=== PATIENT | female | born 1985 | race Caucasian/White ===

== ENCOUNTER → 2016-12-24 | Outpatient (CLI) | payer OTHER ==
[2016-12-24 13:49] LABS: Hemoglobin A1C 6.2 % (4.2-6.1)
== END | disposition home or self-care (01) ==
LOC: LABWHC1 09:03
PROVIDERS: ATTEND Internal Medicine
DX: E11.9 Type 2 diabetes mellitus without complications (principal)
CPT/HCPCS: 36415; 82947; 83036

== ENCOUNTER → 2017-08-13 | Outpatient (CLI) | payer OTHER ==
[2017-08-13 10:16] LABS: HCT 43.5 % (34.0-46.0); HGB 14.5 gm/dL (11.4-16.0); MCH 30.2 pg (25.0-35.0); MCHC 33.4 g/dL (31.0-37.0); MCV 90.3 fL (80.0-100.0); Mean Platelet Volume 7.3; Platelet Count 303 k/uL (150-450); RBC 4.82 m/uL (3.80-5.40); RDW 12.9 % (11.5-15.5); WBC 10.9 k/uL (3.8-10.6)
[2017-08-13 10:42] LABS: ALT 76 U/L (9-52); AST 62 U/L (14-36); Albumin 4.1 g/dL (3.5-5.0); Alkaline Phosphatase 66 U/L (38-126); Anion Gap 10 mmol/L; Blood Urea Nitrogen 17 mg/dL (7-17); Calcium 9.7 mg/dL (8.4-10.2); Carbon Dioxide 24 mmol/L (22-30); Chloride 105 mmol/L (98-107); Cholesterol 122 mg/dL (<200); Glucose 109 mg/dL (74-99); HDL Cholesterol 35 mg/dL (40-60); LDL Cholesterol,Calculated 53 mg/dL (0-99); Potassium 4.6 mmol/L (3.5-5.1); Sodium 139 mmol/L (137-145); Total Bilirubin 0.4 mg/dL (0.2-1.3); Total Protein 7.1 g/dL (6.3-8.2); Triglycerides 172 mg/dL (<150)
[2017-08-13 10:53] LABS: T4, Free (Free Thyroxine) 0.89 ng/dL (0.78-2.19)
[2017-08-13 15:54] LABS: Hemoglobin A1C 6.4 % (4.0-6.0)
== END | disposition home or self-care (01) ==
LOC: LABWHC1 09:36
PROVIDERS: ATTEND Internal Medicine
DX: Z00.00 Encounter for general adult medical examination without abnormal findings (principal); I11.9 Hypertensive heart disease without heart failure; E11.9 Type 2 diabetes mellitus without complications; E66.1 Drug-induced obesity
CPT/HCPCS: 36415; 80053; 80061; 83036; 84439; 84443; 85027

== ENCOUNTER → 2017-09-30 | Outpatient (CLI) | payer OTHER ==
[2017-09-30 09:34] LABS: ALT 67 U/L (9-52); AST 57 U/L (14-36); Alkaline Phosphatase 72 U/L (38-126); Glucose 125 mg/dL (74-99)
--- NOTE | 2017-09-30 09:47 | XR ---
EXAMINATION TYPE: XR knee complete LT DATE OF EXAM: 09/30/2017 COMPARISON: NONE HISTORY: 32-year-old female left knee pain for 2 weeks TECHNIQUE: 3 views FINDINGS: There is tricompartmental degenerative spurring. Weightbearing view could better assess any cartilage /joint space narrowing. Enthesopathy at the upper pole of the patella. No significant joint effusion. There may be mild thickening of the patellar tendon. No acute fracture, subluxation, or dislocation seen. IMPRESSION: 1. Mild tricompartmental osteoarthrosis. 2. There may be mild thickening of the patellar tendon suggesting underlying patellar tendinopathy. C orrelate for any localizing symptoms here. 3. No acute osseous abnormality seen.
[2017-09-30 17:13] LABS: Hemoglobin A1C 6.5 % (4.0-6.0)
== END | disposition home or self-care (01) ==
LOC: LABWHC1 08:32
PROVIDERS: ATTEND Internal Medicine
DX: M17.12 Unilateral primary osteoarthritis, left knee (principal); E11.9 Type 2 diabetes mellitus without complications; R94.5 Abnormal results of liver function studies
CPT/HCPCS: 36415; 82947; 83036; 84075; 84450; 84460

== ENCOUNTER → 2017-10-01 | Outpatient (CLI) | payer OTHER ==
--- NOTE | 2017-10-01 16:39 | US ---
EXAMINATION TYPE: US venous doppler duplex LE LT DATE OF EXAM: 10/01/2017 4:23 PM COMPARISON: 01/27/2013 CLINICAL HISTORY: M79.662 Pain in left lower leg, R22.42. Left popliteal fossa pain x 2 weeks SIDE PERFORMED: Left TECHNIQUE: The lower extremity deep venous system is examined utilizing real time linear array sonog froy with graded compression, doppler sonography and color-flow sonography. VESSELS IMAGED: Common Femoral Vein Deep Femoral Vein Greater Saphenous Vein * Femoral Vein Popliteal Vein Small Saphenous Vein * Proximal Calf Veins (* superficial vessels) Left Leg: Negative for DVT IMPRESSION: Negative exam. No evidence of deep venous thrombosis in the left leg.
== END | disposition home or self-care (01) ==
LOC: RADUSWWP 16:01
PROVIDERS: ATTEND Internal Medicine
DX: R22.42 Localized swelling, mass and lump, left lower limb (principal); M79.662 Pain in left lower leg; M25.562 Pain in left knee

== ENCOUNTER → 2018-02-09 | Outpatient (CLI) | payer OTHER ==
[2018-02-09 10:16] LABS: HCT 43.2 % (34.0-46.0); HGB 14.4 gm/dL (11.4-16.0); MCH 29.8 pg (25.0-35.0); MCHC 33.3 g/dL (31.0-37.0); MCV 89.5 fL (80.0-100.0); Mean Platelet Volume 6.7; Platelet Count 288 k/uL (150-450); RBC 4.82 m/uL (3.80-5.40); RDW 13.3 % (11.5-15.5); WBC 10.3 k/uL (3.8-10.6)
[2018-02-09 10:50] LABS: ALT 71 U/L (9-52); AST 53 U/L (14-36); Albumin 3.9 g/dL (3.5-5.0); Alkaline Phosphatase 60 U/L (38-126); Anion Gap 8 mmol/L; Blood Urea Nitrogen 20 mg/dL (7-17); Calcium 9.4 mg/dL (8.4-10.2); Carbon Dioxide 22 mmol/L (22-30); Chloride 109 mmol/L (98-107); Glucose 122 mg/dL (74-99); Potassium 4.6 mmol/L (3.5-5.1); Sodium 139 mmol/L (137-145); Total Bilirubin 0.5 mg/dL (0.2-1.3); Total Protein 6.9 g/dL (6.3-8.2)
--- NOTE | 2018-02-09 15:32 | US ---
EXAMINATION TYPE: US abdomen complete DATE OF EXAM: 02/09/2018 COMPARISON: NONE CLINICAL HISTORY: R10.84 Generalized abdominal pain, R68.89. Nausea, abdominal pain, cholecystectomy 2012 EXAM MEASUREMENTS: Liver Length: 19.9 cm Gallbladder Wall: Surgically absent CBD: 0.6 cm Spleen: 12.8 cm Right Kidney: 11.8 x 5.1 x 6.0 cm Left Kidney: 11.4 x 5.2 x 5.1 cm Technical limitations due to patient's body habitus and large amount of overlying bowel content Pancreas: Obscured by bowel gas Liver: enlarged, attenuating, unable to penetrate Gallbladder: Surgically absent Evidence for sonographic Saravia's sign: no CBD: appears wnl as visualized Spleen: appears wnl Right Kidney: no evidence of hydronephrosis or mass Left Kidney: no evidence of hydronephrosis or mass Upper IVC: wnl Abd Aorta: visualized portions appear wnl, distal and bifurcation obscured by overlying bowel IMPRESSION: 1. Moderate fatty infiltration liver and hepatomegaly. 2. Limitation due to patient's body habitus.
== END | disposition home or self-care (01) ==
LOC: RADUSWWP 09:08
PROVIDERS: ATTEND Internal Medicine
DX: K76.0 Fatty (change of) liver, not elsewhere classified (principal); E11.9 Type 2 diabetes mellitus without complications; K21.0 Gastro-esophageal reflux disease with esophagitis; R11.0 Nausea; R19.7 Diarrhea, unspecified
CPT/HCPCS: 36415; 76700; 80053; 85027

== ENCOUNTER → 2018-04-28 | Outpatient (CLI) | payer OTHER ==
[2018-04-28 11:59] VITALS: BP 130/80; PULSE 73; TEMP 98.3; BMI 44.4
--- NOTE | 2018-04-28 12:43 | P.HPOB ---
History of Present Illness H&P Date: 04/28/18 Chief Complaint: The patient is here for her routine gynecologic exam. This is a 32-year-old with an LMP of 03/29/2018. The patient is status post tubal sterilization. It has been about 3 1/2 years since her last pelvic exam. Her menses are regular every month. She states she has had low sex drive since last . She denies any pain with sexual activity. She is otherwise without complaints. Review of Systems The patient's weight has been stable over the last year. She denies respiratory , cardiac, or G.I. problems. Past Medical History Past Medical History: Diabetes Mellitus (Pre-Type II diabetes, previous gestational diabetes), Hypertension Additional Past Medical History / Comment(s): Obstetric history: First was a spontaneous . Second : HTN throughout, C- section at 39 weeks. Her third : HTN GDM. 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 History of Any Multi-Drug Resistant Organisms: None Reported Past Surgical History: Section (x2), Cholecystectomy Additional Past Surgical History / Comment(s): back surgery, oral surgery. Past Anesthesia/Blood Transfusion Reactions: No Reported Reaction Additional Past Anesthesia/Blood Transfusion Reaction / Comment(s): itchiness Past Psychological History: Depression Additional Psychological History / Comment(s): post depression Smoking Status: Current every day smoker (Half pack per day ,down from 1 1/2 packs per day.) Past Alcohol Use History: None Reported Past Drug Use History: None Reported Additional History: She has been since 2014 and does not work outside the home. - Past Family History Father Family Medical History: CVA/TIA, Hypertension Mother Family Medical History: Cancer (Uterine cancer), CVA/TIA, Hypertension Additional Family Medical History / Comment(s): Maternal grandmother had breast and uterine cancer Medications and Allergies Home Medications Medication Instructions Recorded Confirmed Type Cholecalciferol [Vitamin D3] 50 mcg PO DAILY 04/28/18 04/28/18 History Cyanocobalamin (Vitamin B-12) PO DAILY 04/28/18 History [Vitamin B-12] Diclofenac Sodium [Voltaren] PO BID 04/28/18 History Lisinopril-Hctz 20-25 mg PO DAILY 04/28/18 History [Zestoretic 20-25] metFORMIN HCL [Metformin HCl] 500 PO BID 04/28/18 History traMADol HCl [Ultram] PO BID 04/28/18 History Allergies Allergy/AdvReac Type Severity Reaction Status Date / Time No Known Allergies Allergy Verified 04/28/18 11:51 Exam Vital Signs Temp Pulse BP 04/28/18 11:56 98.3 F 73 130/80 Intake and Output 04/27/18 04/28/18 04/28/18 22:59 06:59 14:59 Other: Weight 128.82 kg Height 5'7", weight 284 pounds, BMI 44.5. This is a well-developed well-nourished obese white female who is alert and oriented times 3 in no acute distress. HEENT: Within normal limits. There is a piercing lateral to the right eye. She is edentulous in the upper mouth. NECK: Supple without mass or thyromegaly. CHEST AND LUNGS: Clear to auscultation. HEART: Regular rate and rhythm. BREASTS: Are without mass or discharge. AXILLARY EXAM: Negative for adenopathy. BACK: Negative for CVA tenderness. ABDOMEN: Soft, obese, nontender, without palpable masses. PELVIC EXAM: Normal external genitalia. Cervix and vagina appear normal. There is no unusual discharge. There is no evidence of prolapse. The uterus is midposition, nongravid size and nontender. There are no palpable adnexal masses or tenderness. Bimanual examination is somewhat limited secondary to her size. RECTAL EXAM: rectal exam was refused by the patient. EXTREMITIES: Nontender. IMPRESSION: 1. 32-year-old female who is status post tubal sterilization with normal gynecologic exam. 2. Obesity. 3. Low sex drive without any significant physical findings at this time. PLAN: 1. Pap smear was performed. 2. Self breast awareness was discussed with the patient. 3. We've had a long discussion regarding low sex drive and the many possible causes. 4. We discussed the importance of good nutrition, exercise and I've also recommended trying to quit smoking altogether. 5. Will return in one year and PRN.
== END | disposition home or self-care (01) ==
LOC: WWCWWP 11:12
PROVIDERS: ATTEND Obstetrics & Gynecology
DX: Z53.9 Procedure and treatment not carried out, unspecified reason (principal)

== ENCOUNTER → 2018-04-28 | Outpatient (CLI) | payer OTHER ==
[2018-04-28 22:28] LABS: Hemoglobin A1C 6.8 % (4.0-6.0)
== END ==
LOC: LABWHC1 12:34
PROVIDERS: ATTEND Internal Medicine
DX: E11.9 Type 2 diabetes mellitus without complications (principal)
CPT/HCPCS: 36415; 82947; 83036

== ENCOUNTER → 2018-10-01 | Outpatient (CLI) | payer OTHER ==
--- NOTE | 2018-10-01 13:03 | XR ---
EXAMINATION TYPE: XR chest 2V DATE OF EXAM: 10/01/2018 COMPARISON: 05/21/2016 HISTORY: Annual physical TECHNIQUE: Frontal and lateral views of the chest are obtained. FINDINGS: There is no focal air space opacity, pleural effusion, or pneumothorax seen. The cardiac silhouette size is within normal limits. The osseous structures are intact. Moderate multilevel deg enerative changes of the thoracic spine are present. IMPRESSION: No acute cardiopulmonary process.
[2018-10-01 13:07] LABS: HGB 15.1 gm/dL (11.4-16.0); MCH 29.9 pg (25.0-35.0); MCHC 34.4 g/dL (31.0-37.0); MCV 86.9 fL (80.0-100.0); Mean Platelet Volume 6.6; Platelet Count 351 k/uL (150-450); RBC 5.06 m/uL (3.80-5.40); RDW 13.3 % (11.5-15.5); WBC 9.5 k/uL (3.8-10.6)
[2018-10-01 13:12] LABS: ALT 89 U/L (9-52); AST 77 U/L (14-36); Albumin 4.1 g/dL (3.5-5.0); Alkaline Phosphatase 96 U/L (38-126); Anion Gap 9 mmol/L; Blood Urea Nitrogen 18 mg/dL (7-17); Calcium 9.7 mg/dL (8.4-10.2); Carbon Dioxide 25 mmol/L (22-30); Chloride 107 mmol/L (98-107); Cholesterol 136 mg/dL (<200); Glucose 168 mg/dL (74-99); HDL Cholesterol 37 mg/dL (40-60); LDL Cholesterol,Calculated 65 mg/dL (0-99); Potassium 4.6 mmol/L (3.5-5.1); Sodium 141 mmol/L (137-145); Total Bilirubin 0.5 mg/dL (0.2-1.3); Total Protein 7.3 g/dL (6.3-8.2); Triglycerides 169 mg/dL (<150)
[2018-10-01 21:13] LABS: Hemoglobin A1C 8.1 % (4.0-6.0)
== END | disposition home or self-care (01) ==
LOC: RADXRMAIN 12:10
PROVIDERS: ATTEND Internal Medicine
DX: Z00.00 Encounter for general adult medical examination without abnormal findings (principal); I11.9 Hypertensive heart disease without heart failure; E11.9 Type 2 diabetes mellitus without complications; E66.1 Drug-induced obesity
CPT/HCPCS: 36415; 71046; 80053; 80061; 82043; 82570; 83036; 84439; 84443; 85027

== ENCOUNTER → 2019-03-02 | Outpatient (CLI) | payer OTHER ==
--- NOTE | 2019-03-02 18:40 | US ---
EXAMINATION TYPE: US abdomen complete DATE OF EXAM: 03/02/2019 COMPARISON: US CLINICAL HISTORY: R74.8 Abnormal liver enzymes. Patient stated on meds for diabetes, HTN; cholecystec theo EXAM MEASUREMENTS: Liver Length: 23.2 cm Gallbladder Wall: surgically removed CBD: 0.4 cm Spleen: 11.2 cm Right Kidney: 12.5 x 6.6 x 5.6 cm Left Kidney: 12.3 x 6.9 x 5.2 cm Pancreas: wnl Liver: enlarged, fatty, attenuated posteriorly Gallbladder: surgically removed Evidence for sonographic Saravia's sign: no CBD: wnl Spleen: wnl Right Kidney: No hydronephrosis or masses seen Left Kidney: No hydronephrosis or masses seen Upper IVC: wnl Abd Aorta: limitedly seen inferiorly due to overlying bowel gas IMPRESSION: 1. Mild fatty infiltration of the liver. Hepatomegaly is present.
== END | disposition home or self-care (01) ==
LOC: RADUSWWP 06:47
PROVIDERS: ATTEND Family Medicine
DX: K76.0 Fatty (change of) liver, not elsewhere classified (principal); R16.0 Hepatomegaly, not elsewhere classified
CPT/HCPCS: 76700

== ENCOUNTER → 2019-06-28 | Outpatient (CLI) | payer OTHER ==
[2019-06-28 11:25] VITALS: BP 144/81; PULSE 74; RESP 18; TEMP 98.7
--- NOTE | 2019-06-28 11:50 | P.HPOB ---
History of Present Illness H&P Date: 06/28/19 Chief Complaint: The patient is here for her routine gynecologic exam. This is a 33-year-old 012 with an LMP of 06/08/2019. The patient is status post tubal ligation. Menses are typically regular every month, but did miss a menstrual period last month when her father . She attributes this to the stress related to her father's . She is without gynecologic complaints. Review of Systems The patient's weight has been stable over the last year. She denies respiratory, cardiac, or G.I. problems. Past Medical History Past Medical History: Diabetes Mellitus, Hypertension Additional Past Medical History / Comment(s): Type 2 diabetes. 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 History of Any Multi-Drug Resistant Organisms: None Reported Past Surgical History: Section, Cholecystectomy Additional Past Surgical History / Comment(s): back surgery. section 2. Past Anesthesia/Blood Transfusion Reactions: No Reported Reaction Additional Past Anesthesia/Blood Transfusion Reaction / Comment(s): itchiness Past Psychological History: No Psychological Hx Reported Additional Psychological History / Comment(s): post depression Smoking Status: Current every day smoker (One pack per day) Past Alcohol Use History: None Reported Past Drug Use History: None Reported Additional History: She has been since 2014 and does not work outside the home. Her mother and brother have moved in with her since her father in 2018. - Past Family History Father Family Medical History: Cancer, CVA/TIA, Hypertension Additional Family Medical History / Comment(s): Brain cancer. Mother Family Medical History: Cancer, CVA/TIA, Hypertension Additional Family Medical History / Comment(s): Uterine cancer. Maternal g randmother had breast and uterine cancer Medications and Allergies Home Medications Medication Instructions Recorded Confirmed Type Cholecalciferol [Vitamin D3] 50 mcg PO DAILY 04/28/18 06/28/19 History Cyanocobalamin (Vitamin B-12) 1 tab PO DAILY 04/28/18 06/28/19 History [Vitamin B-12] Diclofenac Sodium [Voltaren] 75 mg PO BID 04/28/18 06/28/19 History Lisinopril-Hctz 20-25 mg 20 mg PO DAILY 04/28/18 06/28/19 History [Zestoretic 20-25] metFORMIN HCL [Metformin HCl] 500 mg PO BID 04/28/18 06/28/19 History traMADol HCl [Ultram] 50 mg PO BID 04/28/18 06/28/19 History Amitriptyline HCl 25 mg PO HS 06/28/19 06/28/19 History Ascorbic Acid [Vitamin C] 500 mg PO DAILY 06/28/19 06/28/19 History Biotin 1 tab PO DAILY 06/28/19 06/28/19 History DULoxetine HCL [Cymbalta] 30 mg PO DAILY 06/28/19 06/28/19 History DULoxetine HCL [Cymbalta] 60 mg PO HS 06/28/19 06/28/19 History Omeprazole 40 mg PO DAILY 06/28/19 06/28/19 History glipiZIDE [Glucotrol] 10 mg PO AC-BID 06/28/19 06/28/19 History Allergies Allergy/AdvReac Type Severity Reaction Status Date / Time No Known Allergies Allergy Verified 06/28/19 11:14 Exam Vital Signs Temp Pulse Resp BP Pulse Ox 06/28/19 11:19 98.7 F 74 18 144/81 96 Intake and Output 06/27/19 06/28/19 06/28/19 22:59 06:59 14:59 Other: Weight 130.181 kg Height 5 feet 7 inches, weight 287 pounds, BMI 45.0. This is a well-developed well-nourished heavyset white female who is alert and oriented times 3 in no acute distress. HEENT: Within normal limits. NECK: Supple without mass or thyromegaly. CHEST AND LUNGS: Clear to auscultation. HEART: Regular rate and rhythm. BREASTS: Are without mass or discharge. AXILLARY EXAM: Negative for adenopathy. BACK: Negative for CVA tenderness. ABDOMEN: Soft, obese, nontender, without palpable masses. PELVIC EXAM: Normal external genitalia. Cervix and vagina appear normal. There is no unusual discharge. There is no evidence of prolapse. The uterus is midposition, nongravid size and nontender. There are no palpable adnexal masses or tenderness. Bimanual examination is somewhat limited secondary to her size. RECTAL EXAM: negative for mass or tenderness. EXTREMITIES: Nontender. IMPRESSION: 1. 33-year-old female who is status post tubal ligation with normal gynecologic exam. 2. Smoker 3. Obesity. PLAN: 1. Pap smear was deferred since she had a normal one on 04/28/2018. 2. Self breast awareness was discussed with the patient. 3. I have recommended that she try to quit smoking. She will discuss this with her PCP and look into options. 4. She was advised to return in one year for her annual well woman exam.
== END | disposition home or self-care (01) ==
LOC: WWCWWP 11:06
PROVIDERS: ATTEND Obstetrics & Gynecology
DX: Z53.9 Procedure and treatment not carried out, unspecified reason (principal)

== ENCOUNTER 2019-08-23 22:22 | Emergency (ER) | payer OTHER ==
[2019-08-24] MEDS ORDERED: ACETAMINOPHEN TAB 325 MG TAB PO STA (00:34)
--- NOTE | 2019-08-24 01:04 | XR ---
EXAMINATION TYPE: XR soft tissue neck DATE OF EXAM: 08/24/2019 COMPARISON: NONE HISTORY: Cough TECHNIQUE: 2 views FINDINGS: Epiglottis is normal. Subglottic trachea appears normal. The tonsils and adenoids are withi n normal limits. Cervical spine appears intact. IMPRESSION: Negative cervical soft tissue exam.
--- NOTE | 2019-08-24 01:05 | XR ---
EXAMINATION TYPE: XR chest 2V DATE OF EXAM: 08/24/2019 COMPARISON: 10/01/2018 HISTORY: Cough TECHNIQUE: FINDINGS: Heart and mediastinum are normal. Lungs are clear. Diaphragm is normal. Bony thorax is inta ct. IMPRESSION: Normal chest. No change.
--- NOTE | 2019-08-24 01:53 | ED ---
General Adult HPI - General Chief complaint: Fever Stated complaint: Sore throat,fever Time Seen by Provider: 08/24/19 00:25 Source: patient, RN notes reviewed, old records reviewed Mode of arrival: ambulatory Limitations: no limitations - History of Present Illness Initial comments: 34-year-old female patient with no pertinent past history presents ED for chief complaint of approximately 2 days of sore throat, cough congestion, fevers and chills. Patient reports that approximately one month ago she also had a sore throat and had a hoarse voice. Complaint of sore throat. Denies chance of being . Systemic: Pt denies fatigue, fever/chills, rash. Pt denies weakness, night sweats, weight loss. Neuro: Pt denies headache, visual disturbances, syncope or pre-syncope. HEENT: Pt denies ocular discharge or irritation, otalgia, rhinorrhea, or notable lymphadenopathy. Cardiopulmonary: Pt denies chest pain, SOB, heart palpitations, dyspnea on exertion. Abdominal/GI: Pt denies abdominal pain, n/v/d. : Pt denies dysuria, burning w/ urination, frequency/urgency. Denies new onset urinary or bowel incontinence. MSK: Pt denies myalgia, loss of strength or function in extremities. Neuro: Pt denies new onset weakness, paresthesias. - Related Data Home Medications Medication Instructions Recorded Confirmed Cholecalciferol [Vitamin D3] 50 mcg PO DAILY 04/28/18 06/28/19 Cyanocobalamin (Vitamin B-12) 1 tab PO DAILY 04/28/18 06/28/19 [Vitamin B-12] Diclofenac Sodium [Voltaren] 75 mg PO BID 04/28/18 06/28/19 Lisinopril-Hctz 20-25 mg 20 mg PO DAILY 04/28/18 06/28/19 [Zestoretic 20-25] metFORMIN HCL [Metformin HCl] 500 mg PO BID 04/28/18 06/28/19 traMADol HCl [Ultram] 50 mg PO BID 04/28/18 06/28/19 Amitriptyline HCl 25 mg PO HS 06/28/19 06/28/19 Ascorbic Acid [Vitamin C] 500 mg PO DAILY 06/28/19 06/28/19 Biotin 1 tab PO DAILY 06/28/19 06/28/19 DULoxetine HCL [Cymbalta] 30 mg PO DAILY 06/28/19 06/28/19 DULoxetine HCL [Cymbalta] 60 mg PO HS 06/28/19 06/28/19 Omeprazole 40 mg PO DAILY 06/28/19 06/28/19 glipiZIDE [Glucotrol] 10 mg PO AC-BID 06/28/19 06/28/19 Allergies Allergy/AdvReac Type Severity Reaction Status Date / Time No Known Allergies Allergy Verified 08/23/19 22:29 Review of Systems ROS Statement: Those systems with pertinent positive or pertinent negative responses have been documented in the HPI. ROS Other: All systems not noted in ROS Statement are negative. 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 History of Any Multi-Drug Resistant Organisms: None Reported Past Surgical History: Section, Cholecystectomy Additional Past Surgical History / Comment(s): back surgery. section 2. Past Anesthesia/Blood Transfusion Reactions: No Reported Reaction Additional Past Anesthesia/Blood Transfusion Reaction / Comment(s): itchiness Past Psychological History: No Psychological Hx Reported Smoking Status: Current every day smoker Past Alcohol Use History: None Reported Past Drug Use History: None Reported - Past Family History Father Family Medical History: Cancer, CVA/TIA, Hypertension Additional Family Medical History / Comment(s): Brain cancer. Mother Family Medical History: Cancer, CVA/TIA, Hypertension Additional Family Medical History / Comment(s): Uterine cancer. Maternal grandmother had breast and uterine cancer General Exam - General Exam Comments Initial Comments: Constitutional: NAD, AOX3, Pt has pleasant affect. HEENT: NC/AT, trachea midline, neck supple, no lymphadenopathy. Posterior pharynx non erythematous, without exudates. External ears appear normal, without discharge. Mucous membranes moist. Eyes PERRLA, EOM intact. There is no scleral icterus. No pallor noted. Cardiopulmonary: RRR, no murmurs, rubs or gallops, no JVD noted. Lungs CTAB in anterior and posterior paiz. No peripheral edema. Abdominal exam: Abdomen soft and non-distended. Abdomen non-tender to palpation in all 4 quadrants. Bowel sounds active in LLQ. No hepatosplenomegaly. No ecchymosis Neuro: CN II-XII grossly intact. No nuchal rigidity. No raccon eyes, no steven sign, no hemotympanum. No cervical spinal tenderness. MSK: No posterior calf tenderness bilaterally, homans sign negative bilaterally. Posterior tibialis and radial pulse +2 bilaterally. Sensation intact in upper and lower extremities. Full active ROM in upper and lower extremities, 5/5 stregnth. Limitations: no limitations Course Vital Signs 08/23/19 22:27 Temperature 99.9 F H Pulse Rate 96 Respiratory 20 Rate Blood Pressure 161/99 O2 Sat by Pulse 100 Oximetry Medical Decision Making - Medical Decision Making 34-year-old female patient with no pertinent past history presents ED for chief complaint of approximately 2 days of sore throat, cough congestion, fevers and chills. Patient reports that approximately one month ago she also had a sore throat and had a hoarse voice. Complaint of sore throat. Denies chance of being . Patient vital signs displayed a temperature of 99.9F. Otherwise stable afebrile. Physical exam did not display acute pathology. Influenza, group A strep are negative. Soft tissue neck are negative. Chest x- ray is negative. Patient will be discharged to follow up with primary care provider will also be given GI follow-up for possible patient endoscopy if or stroke continues. Patient is current smoker. Case discussed with Dr. Guzman. - Lab Data Lab Results 08/23/19 08/23/19 Range/Units 22:30 22:30 Influenza Type A RNA Not Detected (Not Detectd) Influenza Type B (PCR) Not Detected (Not Detectd) Group A Strep Rapid Negative (Negative) Disposition Clinical Impression: Pharyngitis, Cough Disposition: HOME SELF-CARE Condition: Stable Instructions (If sedation given, give patient instructions): Fever in Adults (ED), Acute Cough (ED), Strep Throat (ED) Additional Instructions: Follow-up with primary care provider tomorrow. May use tylenol and motrin for discomfort. Follow with GI consult tomorrow, return to ER if condition worsens in any way. Is patient prescribed a controlled substance at d/c from ED?: No Referrals: Weston Cantu DO [Primary Care Provider] - 1-2 days Brenda Brooks MD [STAFF PHYSICIAN] - 1-2 days
[2019-08-24] MEDS ORDERED: ACET/COD 300 MG/30 MG STARTER PACK 6 TAB BTL PO STA (01:56)
[2019-08-24 02:06] VITALS: BP 141/77; PULSE 85; RESP 16; TEMP 98.7
== END 2019-08-24 02:05 | disposition home or self-care (01) ==
LOC: EC 22:22
DX: J02.9 Acute pharyngitis, unspecified (principal); R05 Cough; R09.89 Other specified symptoms and signs involving the circulatory and respiratory systems; R50.9 Fever, unspecified; E11.9 Type 2 diabetes mellitus without complications; I10 Essential (primary) hypertension; F17.200 Nicotine dependence, unspecified, uncomplicated; Z79.1 Long term (current) use of non-steroidal anti-inflammatories (NSAID); Z79.84 Long term (current) use of oral hypoglycemic drugs; Z79.899 Other long term (current) drug therapy
CPT/HCPCS: 70360; 71046; 87081; 87430; 87502; 99284

== ENCOUNTER 2019-11-15 08:34 | Emergency (ER) | payer OTHER ==
[2019-11-15 08:45] VITALS: TEMP 98.7
[2019-11-15] MEDS ORDERED: LIDOCAINE 1% INJ 10MG/ML (20 ML MDV) SQ ONE (09:03)
[2019-11-15] MEDS ORDERED: cefTRIAXone 1,000 MG VIAL (IM USE) IM STA (09:03)
[2019-11-15] MEDS ORDERED: ACET/COD 300 MG/30 MG STARTER PACK 6 TAB BTL PO STA (09:06)
--- NOTE | 2019-11-15 09:07 | ED ---
Female Urogenital HPI - General Chief complaint: Urogenital Stated complaint: Female /abscess Time Seen by Provider: 11/15/19 08:48 Source: patient, RN notes reviewed, old records reviewed Mode of arrival: ambulatory Limitations: no limitations - History of Present Illness Initial comments: This Patient is a 34-year-old female who presents emergency department today with chief complaint of a sided labial abscess. She reports that she noticed a small bump over the area one week ago. Patient reports it progressed and her tries to cough and squeeze it 3 days ago. At that time Patient reports that no even worse and more swollen. She denies any fevers. She is a diabetic. She does see Dr. Cabrera from gynecology. She has not been on any recent antibiotics. She denies any other significant complaints. Patient is currently on her menstrual cycle. - Related Data Home Medications Medication Instructions Recorded Confirmed Cholecalciferol [Vitamin D3] 50 mcg PO DAILY 04/28/18 06/28/19 Cyanocobalamin (Vitamin B-12) 1 tab PO DAILY 04/28/18 06/28/19 [Vitamin B-12] Diclofenac Sodium [Voltaren] 75 mg PO BID 04/28/18 06/28/19 Lisinopril-Hctz 20-25 mg 20 mg PO DAILY 04/28/18 06/28/19 [Zestoretic 20-25] metFORMIN HCL [Metformin HCl] 500 mg PO BID 04/28/18 06/28/19 traMADol HCl [Ultram] 50 mg PO BID 04/28/18 06/28/19 Amitriptyline HCl 25 mg PO HS 06/28/19 06/28/19 Ascorbic Acid [Vitamin C] 500 mg PO DAILY 06/28/19 06/28/19 Biotin 1 tab PO DAILY 06/28/19 06/28/19 DULoxetine HCL [Cymbalta] 30 mg PO DAILY 06/28/19 06/28/19 DULoxetine HCL [Cymbalta] 60 mg PO HS 06/28/19 06/28/19 Omeprazole 40 mg PO DAILY 06/28/19 06/28/19 glipiZIDE [Glucotrol] 10 mg PO AC-BID 06/28/19 06/28/19 Previous Rx's Medication Instructions Recorded Acetaminophen with Codeine 1 tab PO Q6H PRN 3 Days #12 tab 11/15/19 [Tylenol w/codeine #3] Cefixime 400 mg PO DAILY #7 capsule 11/15/19 Clindamycin [Cleocin] 300 mg PO Q6H #42 cap 11/15/19 Allergies Allergy/AdvReac Type Severity Reaction Status Date / Time No Known Allergies Allergy Verified 11/15/19 08:46 Review of Systems ROS Statement: Those systems with pertinent positive or pertinent negative responses have been documented in the HPI. ROS Other: All systems not noted in ROS Statement are negative. Past Medical History Past Medical History: Diabetes Mellitus, Hypertension Additional Past Medical History / Comment(s): Type 2 diabetes. 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 History of Any Multi-Drug Resistant Organisms: None Reported Past Surgical History: Section, Cholecystectomy Additional Past Surgical History / Comment(s): back surgery. section 2. Past Anesthesia/Blood Transfusion Reactions: No Reported Reaction Additional Past Anesthesia/Blood Transfusion Reaction / Comment(s): itchiness Past Psychological History: No Psychological Hx Reported Smoking Status: Current every day smoker Past Alcohol Use History: None Reported Past Drug Use History: None Reported - Past Family History Father Family Medical History: Cancer, CVA/TIA, Hypertension Additional Family Medical History / Comment(s): Brain cancer. Mother Family Medical History: Cancer, CVA/TIA, Hypertension Additional Family Medical History / Comment(s): Uterine cancer. Maternal grandmother had breast and uterine cancer General Exam - General Exam Comments Initial Comments: 34 yo female, no distress. Limitations: no limitations General appearance: alert, in no apparent distress Head exam: Present: atraumatic, normocephalic, normal inspection Eye exam: Present: normal appearance, PERRL, EOMI. Absent: scleral icterus, conjunctival injection, periorbital swelling ENT exam: Present: normal exam, mucous membranes moist Neck exam: Present: normal inspection. Absent: tenderness, meningismus, lymphadenopathy Respiratory exam: Present: normal lung sounds bilaterally. Absent: respiratory distress, wheezes, rales, rhonchi, stridor Cardiovascular Exam: Present: regular rate, normal rhythm, normal heart sounds. Absent: systolic murmur, diastolic murmur, rubs, gallop, clicks GI/Abdominal exam: Present: soft, normal bowel sounds. Absent: distended, tenderness, guarding, rebound, rigid External exam: Present: other (large left labial bartholin gland abscess). Absent: normal external exam Speculum exam: Present: normal speculum exam Extremities exam: Present: normal inspection, full ROM, normal capillary refill. Absent: tenderness, pedal edema, joint swelling, calf tenderness Back exam: Present: normal inspection Neurological exam: Present: alert, oriented X3, CN II-XII intact Psychiatric exam: Present: normal affect, normal mood Skin exam: Present: warm, dry, intact, normal color. Absent: rash Course Vital Signs 11/15/19 11/15/19 11/15/19 08:42 08:45 09:45 Temperature 98.7 F Pulse Rate 87 Respiratory 18 20 20 Rate Blood Pressure 163/101 O2 Sat by Pulse 100 Oximetry 11/15/19 10:24 Temperature 98.7 F Pulse Rate 82 Respiratory 20 Rate Blood Pressure 155/86 O2 Sat by Pulse 100 Oximetry Procedures - Incision & Drainage Consent Obtained: verbal consent Indication: labial abscess Site: vulva/vagina (left bartholin gland abscess) Size (cm): 4 Anesthetic Used: lidocaine 1% Amount (mLs): 5 I&D Cleaning Method: Iodine Sterile Field Used?: Yes Scalpel Used: #11 I&D Drainage Obtained: Pus, Blood Packing: Iodoform Culture Obtained?: Yes Patient Tolerated Procedure: well, no complications Medical Decision Making - Medical Decision Making Patient is a 34 year old female, diabetic with CC of labial abscess for one week. She has no fevers or chills. Abscess was drained and approximately 15cc of purulent fluid was removed. Patient abscess was packed with iodoform. . She was given IM rocephin and reports feeling better after this was drained. Patient will be started on cefixime and clindamycin. Discussed prompt FELT MACHINE MECHANIC follow up and PCP follow up. Discused strict return parameters including increased swelling, fever or pain. Discussed she needs to return to ED if any alarming signs or symptoms occur. - Lab Data Lab Results 11/15/19 Range/Units 09:08 POC Glucose (mg/dL) 368 H (75-99) mg/dL POC Glu Cornice Maker ID Marcelina Ruiz Disposition Clinical Impression: Abscess of left Bartholin's gland Disposition: HOME SELF-CARE Condition: Good Instructions (If sedation given, give patient instructions): Abscess Incision and Drainage (ED), Bartholin Cyst (ED), Incision and Drainage (ED) Additional Instructions: Patient advised to take antibiotics as prescribed. Alternating Motrin Tylenol for pain. Patient should've close follow-up with durable medical equipment technician. Patient recommended to do sits baths. Patient should have packing removed in 2 days and replace packing at that time. If there is any fevers chills or worsening symptoms please return to the ED for reevaluation. Prescriptions: Cefixime 400 mg PO DAILY #7 capsule Clindamycin [Cleocin] 300 mg PO Q6H #42 cap Acetaminophen with Codeine [Tylenol w/codeine #3] 1 tab PO Q6H PRN 3 Days #12 tab PRN Reason: Pain Is patient prescribed a controlled substance at d/c from ED?: Yes If prescribed controlled substance>3 days was MAPS reviewed?: Prescribed <3 Days If opioid is for acute pain is fill amount 7 days or less?: Yes If Rx opioid, was Start Talking consent form obtained?: Yes Referrals: Weston Cantu DO [Primary Care Provider] - 1-2 days Gerber Cabrera MD [STAFF PHYSICIAN] - 1-2 days Time of Disposition: 10:10
[2019-11-15 09:10] LABS: Glucose,Whole Blood 368 mg/dL (75-99)
[2019-11-15 10:04] VITALS: RESP 20
[2019-11-15] MEDS ORDERED: CLINDAMYCIN 150 MG CAP PO STA (10:12)
[2019-11-15 10:35] VITALS: BP 155/86; PULSE 82
== END 2019-11-15 10:29 | disposition home or self-care (01) ==
LOC: EC 08:34
DX: N75.1 Abscess of Bartholin's gland (principal); E11.9 Type 2 diabetes mellitus without complications; I10 Essential (primary) hypertension; F17.200 Nicotine dependence, unspecified, uncomplicated; Z79.84 Long term (current) use of oral hypoglycemic drugs; Z79.899 Other long term (current) drug therapy
CPT/HCPCS: 36415; 87070; 87205; 99284; 56420; 96372; J2001; J0696

== ENCOUNTER → 2020-07-03 | Outpatient (CLI) | payer OTHER ==
--- NOTE | 2020-07-03 12:23 | P.HPOB ---
History of Present Illness H&P Date: 07/03/20 Chief Complaint: The patient is here for her routine gynecologic exam. This is a 34-year-old 012 with an LMP of 06/05/2020. She is status post tubal ligation. She is complaining of a vulvar rash which started about 1-1/2 weeks ago following sexual intercourse. She states it feels like a "rug burn"and is very pruritic. She denies any vaginal discharge. She had some menstrual irregularity in November when she did not have periods for 2 months. More recently they have been regular. Review of Systems The patient has lost 8 pounds over the last year. She denies respiratory, cardiac, or G.I. problems. Past Medical History Past Medical History: Diabetes Mellitus, Hypertension Additional Past Medical History / Comment(s): Type 2 diabetes. 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 History of Any Multi-Drug Resistant Organisms: None Reported Past Surgical History: Section, Cholecystectomy Additional Past Surgical History / Comment(s): back surgery. section 2. 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 Her mother and brother also live with her. - Past Family History Father Family Medical History: Cancer, CVA/TIA, Hypertension Additional Family Medical History / Comment(s): Brain cancer. Mother Family Medical History: Cancer, CVA/TIA, Hypertension Additional Family Medical History / Comment(s): Uterine cancer. Maternal grandmother had breast and uterine cancer. Maternal aunt also had breast cancer. Medications and Allergies Home Medications Medication Instructions Recorded Confirmed Type Cholecalciferol [Vitamin D3] 50 mcg PO DAILY 04/28/18 07/03/20 History Cyanocobalamin (Vitamin B-12) 1 tab PO DAILY 04/28/18 07/03/20 History [Vitamin B-12] Diclofenac Sodium [Voltaren] 75 mg PO BID 04/28/18 07/03/20 History Lisinopril-Hctz 20-25 mg 20 mg PO DAILY 04/28/18 07/03/20 History [Zestoretic 20-25] traMADol HCl [Ultram] 50 mg PO BID 04/28/18 07/03/20 History Amitriptyline HCl 25 mg PO HS 06/28/19 07/03/20 History Biotin 1 tab PO DAILY 06/28/19 07/03/20 History DULoxetine HCL [Cymbalta] 30 mg PO DAILY 06/28/19 07/03/20 History DULoxetine HCL [Cymbalta] 60 mg PO HS 06/28/19 07/03/20 History Omeprazole 40 mg PO DAILY 06/28/19 07/03/20 History glipiZIDE [Glucotrol] 10 mg PO AC-BID 06/28/19 07/03/20 History Allergies Allergy/AdvReac Type Severity Reaction Status Date / Time No Known Allergies Allergy Verified 07/03/20 11:26 Exam Vital Signs Temp Pulse Resp BP Pulse Ox 07/03/20 11:29 98.1 F 78 18 122/82 100 Intake and Output 07/02/20 07/03/20 07/03/20 22:59 06:59 14:59 Other: Weight 126.552 kg Height 5 feet 7-1/2 inches, weight 279 pounds, BMI 43.1. This is a well-developed well-nourished heavyset white female who is alert and oriented times 3 in no acute distress. HEENT: Within normal limits. NECK: Supple without mass or thyromegaly. CHEST AND LUNGS: Clear to auscultation. HEART: Regular rate and rhythm. BREASTS: Are without mass or discharge. She has bilateral nipple piercing. AXILLARY EXAM: Negative for adenopathy. BACK: Negative for CVA tenderness. ABDOMEN: Soft, nontender, without palpable masses. PELVIC EXAM: External genitalia reveals generalized erythema without focal lesions. The erythema extends to the perineum. Cervix and vagina appear normal. There is a small amount of thick whitish discharge without odor. There is no evidence of prolapse. The uterus is midposition, nongravid size and nontender. There are no palpable adnexal masses or tenderness. RECTAL EXAM: negative for mass or tenderness. EXTREMITIES: Nontender. IMPRESSION: 1. 34-year-old premenopausal female with acute vulvitis. Differential diagnosis will include Dana vaginitis and contact vulvitis 2. Family history of breast cancer and to second-degree relatives. PLAN: 1. Pap smear cotest was performed. 2. Self breast awareness was discussed with the patient. 3. Affirm testing was obtained from the vagina for dana, Gardnerella, and Trichomonas. 4. Osteoporosis prevention was discussed. I have stressed the importance of adequate calcium, vitamin D and regular exercise. Recommended amounts of calcium and vitamin D were also discussed. 5. Kenalog 0.1% cream twice a day when necessary for vulvar pruritus and vulvar irritation. She was instructed to avoid over washing with soap as well as scratching and rubbing the area. 6. She was advised to return in one year for her annual well woman exam and as needed.
--- NOTE | 2020-07-04 10:57 | P.PN ---
Progress Note - Text Progress Note Date: 07/04/20 OUTPATIENT FOLLOW-UP NOTE TEST(S)/RESULTS: Test results from 07/03/2020 include a firm testing which was positive for Dana and negative for Gardnerella and Trichomonas. METHOD OF NOTIFICATION: A message was left on the patient's voice mail with this result. PATIENT COMMENTS: DIAGNOSIS: Dana vulvitis DISCUSSION: A prescription for Diflucan 150 mg by mouth every 72 hours 2 doses with one refill was sent to [facility] pharmacy. A message will be left on the patient's voicemail indicating that it was sent to the [facility] pharmacy. PLAN: As above.
--- NOTE | 2020-07-11 12:45 | P.PN ---
Progress Note - Text Progress Note Date: 07/11/20 OUTPATIENT FOLLOW-UP NOTE TEST(S)/RESULTS: Test results from 07/03/2020 include negative Pap smear which also showed fungal organisms consistent with Dana, negative high-risk HPV testing and affirm testing positive for Dana. METHOD OF NOTIFICATION: She was notified by phone. PATIENT COMMENTS: The patient has already been treated with Diflucan after the affirm testing showed Dana. She states things are feeling much better but still slight irritation in small areas. DIAGNOSIS: Negative Pap smear, test. Dana vaginitis treated with Diflucan with improving symptoms. DISCUSSION: The patient patient was instructed to not over wash with soap, to avoid rubbing and scratching and to call if her symptoms do not completely resolve over the next week. PLAN: She was advised to return in one year for her annual well woman exam and as needed.
== END | disposition home or self-care (01) ==
DX: Z53.9 Procedure and treatment not carried out, unspecified reason (principal)

== ENCOUNTER 2021-04-04 20:09 | Emergency (ER) | payer OTHER ==
[2021-04-04 20:40] VITALS: BP 131/83; PULSE 80; RESP 18; TEMP 98
[2021-04-04] MEDS ORDERED: KETOROLAC 15 MG/ML 1 ML VIAL IM STA (21:11)
[2021-04-04] MEDS ORDERED: ACET/COD 300 MG/30 MG STARTER PACK 6 TAB BTL PO STA (21:12)
--- NOTE | 2021-04-04 21:15 | XR ---
PROCEDURE: XR knee complete RT - 3V DATE AND TIME: 04/04/2021 8:58 PM CLINICAL INDICATION: PHH; jump/pain TECHNIQUE: Department protocol COMPARISON: None FINDINGS: There is no fracture or malalignment. The soft tissues show mild joint effusion in the suprapatellar bursa. IMPRESSION: Negative for fracture/malalignment.
--- NOTE | 2021-04-04 21:33 | ED ---
Lower Extremity Injury HPI - General Chief Complaint: Extremity Injury, Lower Stated Complaint: R knee pain Time Seen by Provider: 04/04/21 20:49 Source: patient Mode of arrival: ambulatory Limitations: no limitations - History of Present Illness Initial Comments: 35 year-old female patient presents to the emergency department for evaluation of right knee pain. Patient states around 11:00 this morning she jumped from the tailgate of a pick-up truck. States she seemed fine but then as the day went on she started to get pain in her right knee. States that the pain worsened and it started to swell. States she did have a fracture to this knee in the past so she started to worry. States ice made the pain worse. She denies any numbness or tingling. Reports radiating pain down the leg and up the leg. Denies any numbness or tingling. Denies any other injuries or concerns. - Related Data Home Medications Medication Instructions Recorded Confirmed Cholecalciferol [Vitamin D3] 50 mcg PO DAILY 04/28/18 07/03/20 Cyanocobalamin (Vitamin B-12) 1 tab PO DAILY 04/28/18 07/03/20 [Vitamin B-12] Diclofenac Sodium [Voltaren] 75 mg PO BID 04/28/18 07/03/20 Lisinopril-Hctz 20-25 mg 20 mg PO DAILY 04/28/18 07/03/20 [Zestoretic 20-25] traMADol HCl [Ultram] 50 mg PO BID 04/28/18 07/03/20 Amitriptyline HCl 25 mg PO HS 06/28/19 07/03/20 Biotin [Biotin Disolve] 1 tab PO DAILY 06/28/19 07/03/20 DULoxetine HCL [Cymbalta] 30 mg PO DAILY 06/28/19 07/03/20 DULoxetine HCL [Cymbalta] 60 mg PO HS 06/28/19 07/03/20 Omeprazole 40 mg PO DAILY 06/28/19 07/03/20 glipiZIDE [Glucotrol] 10 mg PO AC-BID 06/28/19 07/03/20 Previous Rx's Medication Instructions Recorded Triamcinolone 0.1% Cream [Kenalog 1 applicatio TOPICAL BID PRN #30 gm 07/03/20 0.1% Cream] Fluconazole [Diflucan] 150 mg PO DIRECTED #2 tab 07/04/20 Ibuprofen [Motrin] 600 mg PO Q8HR PRN #30 tab 04/04/21 Allergies Allergy/AdvReac Type Severity Reaction Status Date / Time No Known Allergies Allergy Verified 04/04/21 20:40 Review of Systems ROS Statement: Those systems with pertinent positive or pertinent negative responses have been documented in the HPI. ROS Other: All systems not noted in ROS Statement are negative. Past Medical History Past Medical History: Diabetes Mellitus, Hypertension Additional Past Medical History / Comment(s): Type 2 diabetes. 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 History of Any Multi-Drug Resistant Organisms: None Reported Past Surgical History: Section, Cholecystectomy Additional Past Surgical History / Comment(s): back surgery. section 2. Past Anesthesia/Blood Transfusion Reactions: No Reported Reaction Additional Past Anesthesia/Blood Transfusion Reaction / Comment(s): itchiness Past Psychological History: Depression Smoking Status: Current every day smoker Past Alcohol Use History: None Reported Past Drug Use History: None Reported - Past Family History Father Family Medical History: Cancer, CVA/TIA, Hypertension Additional Family Medical History / Comment(s): Brain cancer. Mother Family Medical History: Cancer, CVA/TIA, Hypertension Additional Family Medical History / Comment(s): Uterine cancer. Maternal grandmother had breast and uterine cancer. Maternal aunt also had breast cancer. General Exam Limitations: no limitations General appearance: alert, in no apparent distress, other (This is a well- developed, well-nourished adult female patient in no acute distress. Vital signs upon presentation temperature 98.0F, pulse 80, respirations 18, blood pressure 131/83, pulse ox 98% on room air.) Eye exam: Present: normal appearance, PERRL, EOMI. Absent: scleral icterus, conjunctival injection, periorbital swelling ENT exam: Present: normal exam, normal oropharynx, mucous membranes moist Respiratory exam: Present: normal lung sounds bilaterally. Absent: respiratory distress, wheezes, rales, rhonchi, stridor Cardiovascular Exam: Present: regular rate, normal rhythm, normal heart sounds. Absent: systolic murmur, diastolic murmur, rubs, gallop, clicks Extremities exam: Present: full ROM, normal capillary refill, other (Mild right anterior knee swelling. Into the right leg is pink, warm, dry. Cap refill less than 3 seconds. Pedal and posttibial pulses are 2+ and equal bilaterally.). Absent: tenderness, pedal edema, joint swelling, calf tenderness Neurological exam: Present: alert, oriented X3, CN II-XII intact Psychiatric exam: Present: normal affect, normal mood Skin exam: Present: warm, dry, intact, normal color. Absent: rash Course Vital Signs 04/04/21 20:37 Temperature 98 F Pulse Rate 80 Respiratory 18 Rate Blood Pressure 131/83 O2 Sat by Pulse 98 Oximetry Medical Decision Making - Medical Decision Making 35 year-old female patient presents to the emergency department today for evaluation of right knee pain after jumping from a truck earlier today. Physical examination did reveal mild soft tissue swelling. No laxity or pain with valgus or varus maneuvers. Neurovascular status is intact. X-ray is negative. I did discuss findings and results with her. Did apply an Eliel wrap. She'll be discharged to follow-up with the primary care physician for recheck in 1-2 days. She is instructed to take ibuprofen, rest, ice, elevate the knee. Return parameters were discussed in detail. She verbalizes understanding and agrees with this plan. Case discussed with my attending Dr. Camacho. - Radiology Data Radiology results: report reviewed, image reviewed 3 views of the right knee are obtained. Report reviewed in its entirety. Impression by Dr. Dudley Rivera shows negative for fracture/malalignment. Disposition Clinical Impression: Right knee pain Disposition: HOME SELF-CARE Condition: Good Instructions (If sedation given, give patient instructions): Knee Sprain (ED), Knee Pain (ED) Additional Instructions: Use Eliel wrap for comfort and support. Take medication as directed. Rest and elevate the leg. Follow-up with your primary care physician for recheck in 1 week if your symptoms are not improved. Return for any new, worsening, or concerning symptoms. Prescriptions: Ibuprofen [Motrin] 600 mg PO Q8HR PRN #30 tab PRN Reason: Pain Is patient prescribed a controlled substance at d/c from ED?: No Referrals: Weston Cantu DO [Primary Care Provider] - 1-2 days Time of Disposition: 21:33
== END 2021-04-04 21:41 | disposition home or self-care (01) ==
LOC: EC 20:09
DX: M25.561 Pain in right knee (principal); M79.89 Other specified soft tissue disorders; E11.9 Type 2 diabetes mellitus without complications; I10 Essential (primary) hypertension; F17.200 Nicotine dependence, unspecified, uncomplicated; Z79.899 Other long term (current) drug therapy; Z79.84 Long term (current) use of oral hypoglycemic drugs; W17.89XA Other fall from one level to another, initial encounter
CPT/HCPCS: 96372; 99283; 73562; J1885

== ENCOUNTER → 2021-07-03 | Outpatient (CLI) | payer OTHER ==
--- NOTE | 2021-07-03 14:38 | MR ---
EXAMINATION TYPE: MR knee RT wo con DATE OF EXAM: 07/03/2021 COMPARISON: None HISTORY: R knee pain TECHNIQUE: Multiplanar, multisequence imaging of the right knee is performed without IV contrast. FINDINGS: MEDIAL MENISCUS: Anterior and posterior horns are intact without tear. There is myxoid degeneration p osterior horn medial meniscus without evidence for tear. LATERAL MENISCUS: Anterior and posterior horns are intact without tear. CRUCIATE LIGAMENTS: The anterior and posterior cruciate ligaments are intact and unremarkable. COLLATERAL LIGAMENTS: The medial collateral ligament and lateral collateral ligament complex are inta ct and unremarkable. EXTENSOR MECHANISM: Visualized quadriceps and patellar tendons are intact. EFFUSION: There is a moderate suprapatellar joint effusion identified. POPLITEAL CYST: No popliteal/tucker cyst. TRICOMPARTMENT SPACES: Narrowing medial tibiofemoral joint space CARTILAGE: Intact BONE MARROW SIGNAL: No focal abnormal marrow signal is appreciated. OTHER: Varices noted. 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 Joint effusion noted. M ild changes of osteoarthritis.
== END | disposition home or self-care (01) ==
LOC: RADMRIMAIN 13:05
PROVIDERS: ATTEND Orthopaedic Surgery
DX: M17.11 Unilateral primary osteoarthritis, right knee (principal); M25.461 Effusion, right knee

== ENCOUNTER → 2022-02-07 | Outpatient (CLI) | payer OTHER ==
[2022-02-07 22:29] LABS: Basophils # (A) 0.06 X 10*3/uL (0.00-0.10); Basophils % (A) 0.5 %; Eosinophils # (A) 0.33 X 10*3/uL (0.04-0.35); Eosinophils % (A) 2.8 %; HCT 44.3 % (37.2-46.3); HGB 14.4 g/dL (12.0-15.0); Immature Grans, Automated 0.3 %; Lymphocytes # (A) 3.53 X 10*3/uL (0.90-5.00); Lymphocytes % (A) 30.4 %; MCH 29.6 pg (27.0-32.0); MCHC 32.5 g/dL (32.0-37.0); Mean Platelet Volume 10.4 fL (9.5-12.2); Monocytes # (A) 0.93 X 10*3/uL (0.20-1.00); NRBC Per 100 WBC 0 /100 WBCS (0.0-0.0); Neutrophils # (A) 6.74 X 10*3/uL (1.80-7.70); Platelet Count 334 X 10*3/uL (140-440); RBC 4.87 X 10*6/uL (4.10-5.20); RDW 14.1 % (11.5-14.5); WBC 11.63 X 10*3/uL (4.50-10.00)
[2022-02-07 23:11] LABS: African American GFR (CKD) 82.4 (60.0-200.0); Albumin/Globulin Ratio 1.23 (1.60-3.17); Anion Gap 10.9 mmol/L (10.00-18.00); BUN/Creat Ratio 15.15 Ratio (12.00-20.00); Blood Urea Nitrogen 15.3 mg/dL (9.0-27.0); C Reactive Protein 2.1 mg/dL (0.00-0.80); Calcium 9.2 mg/dL (8.7-10.3); Carbon Dioxide 25.5 mmol/L (20.0-27.5); Globulin 3.2 g/dL (1.6-3.3); Non-African American GFR(CKD) 71.1 (60.0-200.0); Total Bilirubin 0.3 mg/dL (0.30-1.20); Total Protein 7.2 g/dL (6.2-8.2)
[2022-02-07 23:24] LABS: Erythrocyte Sedimentation Rate 12 mm/Hr (0-20)
== END | disposition home or self-care (01) ==
LOC: LABWHC1 16:03
PROVIDERS: ATTEND Internal Medicine
DX: L50.9 Urticaria, unspecified (principal)
CPT/HCPCS: 36415; 80053; 84443; 85025; 85652; 86038; 86140; 86160

== ENCOUNTER 2022-05-17 20:17 | Emergency (ER) | payer OTHER ==
[2022-05-17] MEDS ORDERED: TOPICAL SKIN ADHESIVE 1 EACH AMP TOPICAL ONE (22:48)
--- NOTE | 2022-05-17 23:45 | ED ---
General Adult HPI - General Chief complaint: Wound/Laceration Stated complaint: Finger laceration Time Seen by Provider: 05/17/22 21:42 Source: patient, RN notes reviewed Mode of arrival: ambulatory Limitations: no limitations - History of Present Illness Initial comments: 36-year-old female presents to the emergency department for evaluation of superficial laceration to her third digit on the left hand. Patient states injury was sustained with a padded box sewer. Bleeding was controlled prior to arrival. States her tetanus shot is up-to-date. Denies any other injury, loss of sensation, or loss of mobility to the affected area. - Related Data Home Medications Medication Instructions Recorded Confirmed Cholecalciferol [Vitamin D3] 50 mcg PO DAILY 04/28/18 07/03/20 Cyanocobalamin (Vitamin B-12) 1 tab PO DAILY 04/28/18 07/03/20 [Vitamin B-12] Diclofenac Sodium [Voltaren] 75 mg PO BID 04/28/18 07/03/20 Lisinopril-Hctz 20-25 mg 20 mg PO DAILY 04/28/18 07/03/20 [Zestoretic 20-25] traMADol HCl [Ultram] 50 mg PO BID 04/28/18 07/03/20 Amitriptyline HCl 25 mg PO HS 06/28/19 07/03/20 Biotin [Biotin Disolve] 1 tab PO DAILY 06/28/19 07/03/20 DULoxetine HCL [Cymbalta] 30 mg PO DAILY 06/28/19 07/03/20 DULoxetine HCL [Cymbalta] 60 mg PO HS 06/28/19 07/03/20 Omeprazole 40 mg PO DAILY 06/28/19 07/03/20 glipiZIDE [Glucotrol] 10 mg PO AC-BID 06/28/19 07/03/20 Previous Rx's Medication Instructions Recorded Triamcinolone 0.1% Cream [Kenalog 1 applicatio TOPICAL BID PRN #30 gm 07/03/20 0.1% Cream] Fluconazole [Diflucan] 150 mg PO DIRECTED #2 tab 07/04/20 Ibuprofen [Motrin] 600 mg PO Q8HR PRN #30 tab 04/04/21 Allergies Allergy/AdvReac Type Severity Reaction Status Date / Time nickel Allergy Unknown Verified 05/17/22 20:38 Review of Systems ROS Statement: Those systems with pertinent positive or pertinent negative responses have been documented in the HPI. ROS Other: All systems not noted in ROS Statement are negative. Past Medical History Past Medical History: Diabetes Mellitus, Hypertension Additional Past Medical History / Comment(s): Type 2 diabetes. PAST [employer] H ISTORY: She has no history of STDs. History of Any Multi-Drug Resistant Organisms: None Reported Past Surgical History: Section, Cholecystectomy Additional Past Surgical History / Comment(s): back surgery. section 2. Past Anesthesia/Blood Transfusion Reactions: No Reported Reaction Additional Past Anesthesia/Blood Transfusion Reaction / Comment(s): itchiness Past Psychological History: Depression Smoking Status: Current every day smoker Past Alcohol Use History: None Reported Past Drug Use History: None Reported - Past Family History Father Family Medical History: Cancer, CVA/TIA, Hypertension Additional Family Medical History / Comment(s): Brain cancer. Mother Family Medical History: Cancer, CVA/TIA, Hypertension Additional Family Medical History / Comment(s): Uterine cancer. Maternal grandmother had breast and uterine cancer. Maternal aunt also had breast cancer. General Exam Limitations: no limitations General appearance: alert, in no apparent distress Respiratory exam: Present: normal lung sounds bilaterally. Absent: respiratory distress, wheezes, rales, rhonchi, stridor Cardiovascular Exam: Present: regular rate, normal rhythm, normal heart sounds. Absent: systolic murmur, diastolic murmur, rubs, gallop, clicks Neurological exam: Present: alert, oriented X3, CN II-XII intact Psychiatric exam: Present: normal affect, normal mood Skin exam: Present: warm, dry, normal color (superficial 0.5cm laceration to the distal phalanx on the third digit, dorsal surface. No active bleeding. Distal sensation intact. No loss of ROM.) Expanded Type of lesion: Present: laceration Course Vital Signs 05/17/22 05/17/22 05/17/22 20:38 21:15 23:45 Temperature 97.9 F 98.2 F 97.8 F Pulse Rate 92 72 16 L Respiratory 18 16 18 Rate Blood Pressure 133/84 151/94 132/80 O2 Sat by Pulse 98 97 99 Oximetry Procedures - Laceration Laceration #1 Consent Obtained: verbal consent Indication: laceration Site: upper extremity (third digit, distal phalanx, left hand) Size (cm): 0 (<0.5cm) Description: linear Pre-repair: irrigated extensively Patient Tolerated Procedure: well, no complications Additional Comments: Wound was thoroughly cleansed and irrigated. The laceration is not on flexor surface area of tension, skin adhesive was utilized to approximate the superficial laceration without difficulty. Wound care was discussed with patient. She verbalizes understanding Medical Decision Making - Medical Decision Making This is a 36-year-old female with no significant past medical history who presents to the emergency department for evaluation of injury to the left hand. Upon exam, patient is well-appearing and in no acute distress. Her wound was sustained with a padded box sewer. TD up to date. ROM intact. No loss of sensation. Wound cleansed and skin adhesive applied with good approximation. Wound care reviewed with patient. Encouraged to follow up with PCP for recheck as needed. She verbalizes understanding of this plan. Attending: Lillie. Disposition Clinical Impression: Superficial laceration of finger Disposition: HOME SELF-CARE Condition: Stable Instructions (If sedation given, give patient instructions): Skin Adhesive Care (ED) Additional Instructions: Avoid submerging hand in water. Allowed glue to flake off- do not pick at it. Monitor carefully for signs of infection including increased redness, swelling, or foul-smelling drainage. Follow-up with your PCP for a recheck next week if needed. Return to the emergency department with any new, worsening, or concerning symptoms. Is patient prescribed a controlled substance at d/c from ED?: No Referrals: Weston Cantu DO [Primary Care Provider] - 1-2 days Time of Disposition: 23:45
[2022-05-17 23:46] VITALS: BP 132/80; PULSE 16; RESP 18; TEMP 97.8
== END 2022-05-17 23:48 | disposition home or self-care (01) ==
LOC: EC 20:17
DX: S61.213A Laceration without foreign body of left middle finger without damage to nail, initial encounter (principal); E11.9 Type 2 diabetes mellitus without complications; I10 Essential (primary) hypertension; L23.0 Allergic contact dermatitis due to metals; F32.A Depression, unspecified; F17.200 Nicotine dependence, unspecified, uncomplicated; Z79.01 Long term (current) use of anticoagulants; Z79.899 Other long term (current) drug therapy; Z79.84 Long term (current) use of oral hypoglycemic drugs; W26.0XXA Contact with knife, initial encounter
CPT/HCPCS: 12001; 99283